=== PATIENT | female | born 1950 | race Caucasian/White ===

== ENCOUNTER 2018-10-02 12:53 | Emergency (ER) | payer MEDICARE, OTHER ==
[~2018-10-02] VITALS: Wt 74.4 kg
[2018-10-02 12:55] VITALS: BP 164/79; PULSE 82; RESP 18
--- NOTE | 2018-10-02 15:33 | ERD ---
ER Documentation Chief Complaint Chief Complaint SHEILA FALL, HAS LEFT WRIST PAIN HPI 68-year-old female, right-handed, presents the emergency department, complaining of left wrist pain, after a mechanical fall that occurred today. The pain is dull, constant, 8/10, associated with decreased range of motion. The patient denies distal weakness, numbness or tingling. Medications taken for the pain: None. ROS All systems reviewed and are negative except as per history of present illness. Medications Home Meds Active Scripts Ibuprofen* (Motrin*) 400 Mg Tab, 400 MG PO Q8, #15 TAB Prov:SYED ARITA MD 10/02/18 Acetaminophen* (Tylenol*) 325 Mg Tablet, 2 TAB PO Q8 PRN for PAIN AND OR ELEVATED TEMP, #20 TAB Prov:SYED ARITA MD 10/02/18 Allergies Allergies: Coded Allergies: No Known Allergy (Unverified , 10/02/18) PMhx/Soc Medical and Surgical Hx: pt denies Medical Hx, pt denies Surgical Hx Hx Alcohol Use: No Hx Substance Use: No Hx Tobacco Use: No Smoking Status: Never smoker FmHx Family History: No diabetes, No coronary disease Physical Exam Vitals Vital Signs Date Temp Pulse Resp B/P (MAP) Pulse Ox O2 O2 Flow FiO2 Time Delivery Rate 10/02/18 98.1 82 18 164/79 99 12:55 (107) Physical Exam Const: No acute distress Head: Atraumatic Eyes: Normal Conjunctiva ENT: Normal External Ears, Nose and Mouth. Neck: Full range of motion. No meningismus. Resp: Clear to auscultation bilaterally Cardio: Regular rate and rhythm, no murmurs Abd: Soft, non tender, non distended. Normal bowel sounds Skin: No petechiae or rashes Back: No midline or flank tenderness Ext: left hand: dorsal deformity of the wrist with tenderness to palpation, significant edema and decreased range of motion. Distal neurovascular exam intact, no elbow or shoulder pain. Neur: Awake and alert Psych: Normal Mood and Affect Results 24 hrs Current Medications Medications Dose Sig/Lilia Start Time Status Last (Trade) Ordered Route PRN Stop Time Admin Dose Reason Admin 650 mg ONCE ONCE 10/02/18 DC 10/02/18 Acetaminophen PO 16:00 16:10 (Tylenol 1/23/19 16:01 Tab) Ibuprofen 400 mg ONCE ONCE 10/02/18 DC 10/02/18 (Motrin) PO 16:00 16:10 10/02/18 16:01 DIAGNOSTIC IMAGING REPORT Patient: DONATO CALDERON : 1950 Age: 68 Sex: F MR #: [id number] DOS: 10/02/18 1538 Ordering MD: SYED ARITA MD Location: [facility] Room/Bed: PROCEDURE: XR Left Wrist. CLINICAL INDICATION: left wrist pain s/ p fall TECHNIQUE: 4 views of the left wrist were performed. COMPARISON: No prior studies are available for comparison. FINDINGS: Acute, mildly displaced/impacted fracture of the distal radial metaphysis. No significant angulation of the fracture. Mildly displaced ulnar styloid process fracture. No displaced scaphoid fracture detected. Moderate soft tissue swelling. Incidental note of mild degenerate joint disease at the thumb base. IMPRESSION: Acute, mildly displaced/impacted fracture of the distal radial metaphysis. Acute, mildly displaced ulnar styloid process fracture. RPTAT:AAJJ Physician Jona Date Time Electronically viewed and signed by Physician Jona on 10/02/2018 16:36 RF/ CC: SYED ARITA MD [id number] Patient: DONATO CALDERON : 1950 Age: 68 Sex: F MR #: [id number] DOS: 10/02/18 1608 Ordering MD: SYED ARITA MD Location: [facility] Room/Bed: PROCEDURE: XR Forearm. CLINICAL INDICATION: wrist apain s/p fall TECHNIQUE: AP and lateral views of the left forearm were obtained. COMPARISON: No prior studies are available for comparison. FINDINGS: Acute, mildly displaced/impacted fracture of the distal radial metaphysis. Mildly displaced ulnar styloid process fracture. No displaced scaphoid fracture detected. Moderate soft tissue swelling. No additional fractures in the proximal forearm detected. No dislocation at the elbow joint. IMPRESSION: Acute, mildly displaced/impacted fracture of the distal radial metaphysis. Acute, mildly displaced ulnar styloid process fracture. RPTAT:AAJJ Physician Jona Date Time Electronically viewed and signed by Blessing Kaufman Physician on 10/02/2018 16:37 RF/ CC: SYED ARITA MD [id number] Procedures/MDM Differential diagnosis considered include but not limited are: sprain/strain, ligament injury, fracture, dislocation, low suspicion for acute infectious process. Soft compartments, neurovascular exam grossly intact. Physical examination and clinical presentation consistent with left radial styloid closed fracture. During the ED course the patient received treatment with short arm posterior presenting overall improvement of the symptoms. Splint evaluation: Type: Short arm Location: Right forearm Position: good alignment in anatomical position Neurovascular intact Results and clinical impression discussed with patient who agrees with management. The patient is stable to be treated outpatient and will be discharged home with recommendations for Ortho evaluation [place], meanwhile, ice, rest and partial immobilization. NSAIDs 3 times daily for 5 days and close monitoring. The patient was instructed to follow up with the primary care provider in the next 48h. If symptoms persist, worsen or new symptoms develop, then patient should return to the ED immediately. Instructions explained and given to patient with acknowledgment and demonstrated understanding. Disclaimer: Inadvertent spelling and grammatical errors are likely due to EHR/dictation software use and do not reflect on the overall quality of patient care. Also, please note that the electronic time recorded on this note does not necessarily reflect the actual time of the patient encounter. Departure Diagnosis: Primary Impression: Left radial fracture Additional Impression: Nondisplaced fracture of left ulna styloid process, initial encounter for closed fracture Condition: Stable Additional Instructions: Thank you very much for allowing us to participate in your care. Your health and safety is our top priority at [facility]. Call your primary care doctor TOMORROW for an appointment during the next 2-4 days and bring all the information and medications prescribed. Have prescriptions filled and follow precisely the directions on the label. If the symptoms get worse and your provider is unavailable, return to the Emergency Department immediately. SYED ARITA MD Oct 02, 2018 15:33
[2018-10-02] MEDS ORDERED: IBUPROFEN 200 MG TAB PO ONE (16:00)
[2018-10-02] MEDS ORDERED: ACETAMINOPHEN 325 MG TAB PO ONE (16:00)
[2018-10-02] MEDS ORDERED: ACET325T33 PO (16:59)
[2018-10-02] MEDS ORDERED: IBUP-1561 PO (16:59)
== END 2018-10-02 17:43 | disposition home or self-care (01) ==
LOC: FTE 12:53
DX: S52.92XA Unspecified fracture of left forearm, initial encounter for closed fracture (principal); S52.615A Nondisplaced fracture of left ulna styloid process, initial encounter for closed fracture; W18.39XA Other fall on same level, initial encounter; Y92.9 Unspecified place or not applicable
CPT/HCPCS: 73090